=== PATIENT | female | born 1960 | race African-American/Black ===

== ENCOUNTER → 2017-12-14 | Outpatient (CLI) | payer BC ==
--- NOTE | 2017-12-14 14:35 | RADIOLOGY REPORT (SQ) ---
EXAM DESCRIPTION: ANKLE RIGHT AP/LATERAL COMPLETED DATE/TIME: 12/14/2017 2:27 pm REASON FOR STUDY: PAIN IN RIGHT ANKLE AND JOINTS OF RIGHT FOOT M25.571 PAIN IN RIGHT ANKLE AND JOIN TS OF RIGHT FOOT COMPARISON: None. NUMBER OF VIEWS: Two views. TECHNIQUE: AP and lateral radiographic images acquired of the right ankle. LIMITATIONS: None. FINDINGS: MINERALIZATION: Normal. BONES: No acute fracture or dislocation. No worrisome bone lesions. JOINTS: No effusions. SOFT TISSUES: No soft tissue swelling. No foreign body. OTHER: No other significant finding. IMPRESSION: NEGATIVE STUDY OF THE RIGHT ANKLE. NO RADIOGRAPHIC EVIDENCE OF ACUTE INJURY. TECHNICAL DOCUMENTATION: JOB ID: [id number] [employer]- All Rights Reserved Reading location - IP/workstation name: [email or web address]
== END ==
LOC: OD 13:49
PROVIDERS: ATTEND Internal Medicine
DX: M25.571 Pain in right ankle and joints of right foot (principal)

== ENCOUNTER → 2018-02-17 | Outpatient (CLI) | payer BC ==
--- NOTE | 2018-02-18 08:21 | RADIOLOGY REPORT (SQ) ---
EXAM DESCRIPTION: MRI RT LOWER JOINT WITHOUT COMPLETED DATE/TIME: 02/17/2018 5:40 pm REASON FOR STUDY: M79.671 PAIN IN RIGHT FOOT M79.671 PAIN IN RIGHT FOOT COMPARISON: None. TECHNIQUE: Right ankle images acquired and stored on PACS. Multiplanar images include fat sensitive sequences as T1, fluid sensitive sequences as FST2/STIR, cartilage sensitive sequences as FSPD, and g radient echo sequences. LIMITATIONS: None. FINDINGS: BONE MARROW: Subchondral edema anterior calcaneal process. EFFUSIONS: Small subtalar joint effusion. OSSEOUS ARTICULATIONS: Joint space narrowing lateral margin sustentaculum vernoa and talar articular kearns rface series 8, image 18. No osseous coalition. TALAR DOME AND TIBIAL PLAFOND: Intact. No osteochondral defect. ACHILLES TENDON: Intact without partial or full-thickness tear. No adjacent bursal fluid or edema. TIBIALIS ANTERIOR TENDON: Intact without edema at the 1st MT attachment. TIBIALIS POSTERIOR TENDON: Thickening and increased signal. Tendon sheath fluid. FLEXOR HALLUCIS LONGUS AND FLEXOR DIGITORUM TENDONS: Intact. PERONEUS LONGUS AND BREVIS TENDON: Normal morphology and no tendon sheath fluid. No subluxation. ATFL, CFL, PTFL: Intact. No thickening or signal alteration. No randall-ligamentous fluid. DELTOID LIGAMENT: Visualized components intact. TARSAL TUNNEL: No masses. No muscle atrophy. SINUS TARSI: No fluid. No reactive marrow edema or erosions. PLANTAR FASCIA: No signal alteration or tear. ADJACENT SOFT TISSUES: No masses. OTHER: No other significant finding. IMPRESSION: 1. Tibialis posterior tenosynovitis. 2. Subtalar joint arthropathy. Degenerative change sustentaculum verona and talar articular surface. No osseous coalition. TECHNICAL DOCUMENTATION: JOB ID: [id number] [employer]- All Rights Reserved Reading location - IP/workstation name: [email or web address]
== END ==
LOC: RAD 17:44
PROVIDERS: ATTEND Internal Medicine
DX: M79.671 Pain in right foot (principal); M65.871 Other synovitis and tenosynovitis, right ankle and foot

== ENCOUNTER → 2018-05-12 | Outpatient (CLI) | payer BC ==
--- NOTE | 2018-05-12 16:09 | RADIOLOGY REPORT (SQ) ---
EXAM DESCRIPTION: KNEE LEFT 2 VIEWS COMPLETED DATE/TIME: 05/12/2018 3:54 pm REASON FOR STUDY: PAIN IN LEFT KNEE M25.562 PAIN IN LEFT KNEE M79.605 PAIN IN LEFT LEG Pain in the knee, no known injury COMPARISON: None. NUMBER OF VIEWS: Two views. TECHNIQUE: AP lateral radiographic images acquired of the left knee. LIMITATIONS: None. FINDINGS: MINERALIZATION: Normal. BONES: No acute fracture or dislocation. No worrisome bone lesions. JOINT: Small suprapatellar knee joint effusion. High-grade patellofemoral and medial compartment navya nt space narrowing with bony sclerosis and osteophyte formation SOFT TISSUES: No soft tissue swelling. No radio-opaque foreign body. OTHER: No other significant finding. IMPRESSION: Osteoarthritis in the patellofemoral and medial compartments of the left knee. Small kearns prapatellar knee joint effusion TECHNICAL DOCUMENTATION: JOB ID: [id number] [employer]- All Rights Reserved Reading location - IP/workstation name: [email or web address]
--- NOTE | 2018-05-12 16:10 | RADIOLOGY REPORT (SQ) ---
EXAM DESCRIPTION: TIBIA FIBULA LEFT COMPLETED DATE/TIME: 05/12/2018 3:54 pm REASON FOR STUDY: PAIN IN LEFT LEG M25.562 PAIN IN LEFT KNEE M79.605 PAIN IN LEFT LEG COMPARISON: Left knee two views same date NUMBER OF VIEWS: Two views. TECHNIQUE: Two radiographic images acquired of the left tibia and fibula to include the knee and ank le in at least one projection. LIMITATIONS: None. FINDINGS: MINERALIZATION: Normal. BONES: No acute fracture or dislocation. No worrisome bone lesions. SOFT TISSUES: No obvious swelling or foreign body. OTHER: Joint space narrowing and osteophyte formation in the patellofemoral and medial compartments o f the left knee. Small suprapatellar knee joint effusion. IMPRESSION: No acute fracture. Osteoarthritis in the left knee TECHNICAL DOCUMENTATION: JOB ID: [id number] [employer]- All Rights Reserved Reading location - IP/workstation name: [email or web address]
== END ==
LOC: OD 15:34
PROVIDERS: ATTEND Internal Medicine
DX: M25.562 Pain in left knee (principal); M79.605 Pain in left leg; M17.12 Unilateral primary osteoarthritis, left knee

== ENCOUNTER 2018-10-05 05:26 | Day surgery (SDC) | payer BC ==
[2018-10-04 11:40] LABS: HEMATOCRIT 39.7 % (36.0-47.0); HEMOGLOBIN 12.9 g/dL (12.0-15.5); MEAN CORPUSCULAR HEMOGLOBIN 27.6 pg (27.0-33.4); MEAN CORPUSCULAR HGB CONC 32.5 g/dL (32.0-36.0); MEAN CORPUSCULAR VOLUME 85 fl (80-97); PLATELET COUNT 265 10^3/uL (150-450); RED BLOOD COUNT 4.67 10^6/uL (3.72-5.28); WHITE BLOOD COUNT 5.9 10^3/uL (4.0-10.5)
[2018-10-04 11:46] LABS: APPEARANCE,URINE SLIGHTLY-CLOUDY; BILIRUBIN,URINE NEGATIVE (NEGATIVE); COLOR,URINE YELLOW; GLUCOSE, URINE NEGATIVE (NEGATIVE); KETONES,URINE NEGATIVE (NEGATIVE); LEUKOCYTE ESTERASE,URINE NEGATIVE (NEGATIVE); NITRITE,URINE NEGATIVE (NEGATIVE); PROTEIN,URINE NEGATIVE (NEGATIVE); UROBILINOGEN,URINE NEGATIVE mg/dL (<2.0)
[2018-10-04 12:07] LABS: ALANINE AMINOTRANSFERASE 26 U/L (9-52); ALBUMIN 4.6 g/dL (3.5-5.0); ALKALINE PHOSPHATASE 104 U/L (38-126); ANION GAP 8 (5-19); ASPARTATE AMINO TRANSFERASE 24 U/L (14-36); BILIRUBIN,DIRECT 0.2 mg/dL (0.0-0.4); BILIRUBIN,TOTAL 0.5 mg/dL (0.2-1.3); BLOOD UREA NITROGEN 16 mg/dL (7-20); CARBON DIOXIDE 30 mmol/L (22-30); CHLORIDE 102 mmol/L (98-107); GLUCOSE 106 mg/dL (75-110); POTASSIUM 4.5 mmol/L (3.6-5.0); SODIUM 140.1 mmol/L (137-145)
--- NOTE | 2018-10-04 14:35 | RADIOLOGY REPORT (SQ) ---
EXAM DESCRIPTION: CHEST PA/LATERAL COMPLETED DATE/TIME: 10/04/2018 11:08 am REASON FOR STUDY: PRE-OP COMPARISON: None. EXAM PARAMETERS: NUMBER OF VIEWS: two views TECHNIQUE: Digital Frontal and Lateral radiographic views of the chest acquired. RADIATION DOSE: NA LIMITATIONS: none FINDINGS: LUNGS AND PLEURA: No opacities, masses or pneumothorax. No pleural effusion. MEDIASTINUM AND HILAR STRUCTURES: No masses or contour abnormalities. HEART AND VASCULAR STRUCTURES: Mild cardiomegaly BONES: No acute findings. HARDWARE: None in the chest. OTHER: No other significant finding. IMPRESSION: Mild cardiomegaly. No acute findings TECHNICAL DOCUMENTATION: JOB ID: [id number] [employer]- All Rights Reserved Reading location - IP/workstation name: [email or web address]
--- NOTE | 2018-10-04 20:44 | EKG REPORT ---
SEVERITY:- ABNORMAL ECG - SINUS RHYTHM CONSIDER LEFT VENTRICULAR HYPERTROPHY : Confirmed by: Lizet Riojas MD 04-Oct-2018 20:43:45
[~2018-10-05 05:26] MED LIST: CEFAZOLIN 1 GM/D5W RTU 1 GM/50 ML RTUPB IV PRN; LACTATED RINGERS 1000 ML IV PRN; LIDOCAINE 0.5% INJ-PF (5 MG/ML) 50 ML SDV SUBCUT PRN; RINGERS SOLUTION,LACTATED 1,000 ML IV PRN
[2018-10-05] MEDS ORDERED: CEFAZOLIN 1 GM/D5W RTU 1 GM/50 ML RTUPB IV ONE (05:35)
[2018-10-05] MEDS ORDERED: LIDOCAINE 2% INJ (20 MG/ML) 20 ML MDV ONE (06:51)
[2018-10-05] MEDS ORDERED: HYDROMORPHONE HCL INJ/PF 2 MG/ML AMPULE ONE (06:51)
[2018-10-05] MEDS ORDERED: MIDAZOLAM 2 MG/2 ML INJ ONE ×2 (06:52→09:59)
[2018-10-05] MEDS ORDERED: PROPOFOL INJ 200 MG/20 ML VIAL IV ONE ×2 (06:52→09:59)
[2018-10-05] MEDS ORDERED: FENTANYL CITRATE INJ/PF 100 MCG/2 ML AMPUL ONE ×2 (06:52→09:59)
[2018-10-05] MEDS ORDERED: MEPERIDINE HCL/PF INJ 25 MG/1 ML DISP.SYRIN IV PRN (08:15)
[2018-10-05] MEDS ORDERED: MORPHINE SULFATE 10 MG/ML INJ IV PRN ×2 (08:15→10:38)
[2018-10-05] MEDS ORDERED: DIPHENHYDRAMINE HCL 50 MG/ML VIAL IV PRN (08:15)
[2018-10-05] MEDS ORDERED: ONDANSETRON HCL INJ/PF 4 MG/2 ML SDV IV PRN (08:15)
[2018-10-05] MEDS ORDERED: OXYCODONE-ACETAMINOPHEN 5-325 MG TABLET PO PRN ×3 (08:15→10:36)
[2018-10-05] MEDS ORDERED: FENTANYL CITRATE INJ/PF 100 MCG/2 ML AMPUL IV PRN ×3 (08:15)
[2018-10-05] MEDS ORDERED: PROMETHAZINE HCL INJ 25 MG/1 ML VIAL IV PRN (08:15)
[2018-10-05] MEDS ORDERED: DEXAMETHASONE SOD PHOSPHATE INJ 4 MG/1 ML VIAL ONE ×2 (09:59→14:50)
[2018-10-05] MEDS ORDERED: KETOROLAC TROMETHAMINE 60 MG/2 ML SDV ONE ×2 (09:59→14:50)
[2018-10-05] MEDS ORDERED: ONDANSETRON HCL INJ/PF 4 MG/2 ML SDV ONE ×2 (09:59→14:50)
[2018-10-05] MEDS ORDERED: ACETAMINOPHEN 1,000 MG/100 ML RTUPB IV ONE (10:04)
--- NOTE | 2018-10-05 11:20 | OPERATIVE REPORT E ---
Operative Report NAME: MERCED MENA : 1960 AGE: 58Y DATE OF SURGERY: 10/05/2018 ROOM: PREOPERATIVE DIAGNOSIS: POSTMENOPAUSAL BLEEDING, COMPLEX HYPERPLASIA WITH ATYPIA ON ENDOMETRIAL BIOPSY. POSTOPERATIVE DIAGNOSIS: POSTMENOPAUSAL BLEEDING, COMPLEX HYPERPLASIA WITH ATYPIA ON ENDOMETRIAL BIOPSY. OPERATION: Robotic-assisted total laparoscopic hysterectomy with bilateral salpingo-oophorectomy and lysis of adhesions. SURGEON: JOSE C MURPHY M.D. ANESTHESIA: [facility] [place] with [place] FINDINGS: Six week size uterus with a left ovarian cyst that looked clear and simple in appearance. Multiple adhesions of the omentum to the umbilicus, some mild adhesions of the bladder to the lower uterine segment. COMPLICATIONS: None. ESTIMATED BLOOD LOSS: 200 mL. SPECIMENS REMOVED: Uterus and bilateral fallopian tubes and ovaries. PROCEDURE: The patient was taken to the operating room, prepared and draped in normal sterile fashion in dorsal lithotomy position. Under sterile conditions, a Smith catheter was placed to gravity and a sterile speculum was placed into the vagina, and the cervix was grasped on the anterior lip with a single-tooth tenaculum and prepped with Betadine. The uterus was then dilated to accommodate a medium V-care which was accomplished with minimal difficulty. The speculum and tenaculum were then removed and gloves were changed and attention was turned to the upper portion of the case. A 2.5 cm skin incision was made approximately 1.5 cm above the umbilicus with the scalpel and this was carried through to the underlying layer of fascia with the same scalpel. The fascia was excised in the midline and extended laterally with Mayos at this point. The peritoneal cavity was entered at this point without difficulty. A gel port was then placed. The abdomen was inflated with approximately 2 liters of CO2 gas, and the robotic camera was introduced with the above findings noted. Under direct visualization, 2 5 mm ports were placed on either side of the umbilicus, approximately 10 cm from the umbilicus and using blunt dissection we were able to take down the majority of the adhesions of the omentum from the anterior abdominal wall using an atraumatic grasper. The camera was removed and the robot was then docked and the vessel sealer and monopolar scissors were placed. I then unscrubbed and sat at the console where, beginning with the right adnexa, I transected the IP ligament following the contours of the ovary and proceeding through to the round ligament using the vessel sealer, transected the round ligament and then again hugging the uterine wall, began transection of the uterine arteries and skeletonization of the broad ligament away from the uterus. I then switched my attention to the left adnexa and in a similar fashion transected the IP ligament and continued with transection of the round ligament and the broad ligament skeletonizing the uterine arteries and transecting these again with the vessel sealer. I completed transection and dissection of the uterine arteries bilaterally in a normal fashion and until I reached the level of the external cervical os and noted the V-care manipulator through the mucosa readily. I dissected the bladder away using the monopolar scissors and blunt dissection. I then began the colporrhaphy on the anterior aspect of the cervix following the V-care and did this in a circumferential fashion until the specimen was completely freed. The specimen was then removed through the vagina. Instruments were changed to a caron-needle charter and tour bus driver and a Prograf. A V-LOC needle was introduced through the assistance port. The vaginal cuff was then closed with a V-LOC without difficulty. The needle was then ligated with laparoscopic scissors and was removed with a laparoscopic needle charter and tour bus driver through the assistance port. I then inspected the ureters and found them both to be peristalsing normally. There were no signs of hydroureter. The rest of the cavity was copiously suction irrigated and inspected carefully and found to be hemostatic. The robotic portion of the case was then concluded and the robot was undocked. Trocars were removed and the gel port was removed in a normal fashion. The fascia was closed at the gel port incision using 0-Vicryl and the skin was closed at all 3 incisions using 4-0 Vicryl. The patient tolerated the procedure well. Sponge, lap, and needle counts were correct x2 and the patient was taken to recovery in stable condition. DICTATING PHYSICIAN: JOSE C MURPHY M.D. [id number] PHY#: [id number] ID: [id number] JOB#: [id number] ACCT: [id number] cc:JOSE C MURPHY M.D. >
[2018-10-05] MEDS: RINGERS SOLUTION,LACTATED 1,000 ML IV PRN ×2 (12:19→21:55)
[2018-10-05] MEDS ORDERED: ONDANSETRON HCL INJ/PF 4 MG/2 ML SDV IV ONE (12:45)
[2018-10-05] MEDS ORDERED: ROCURONIUM BROMIDE INJ 50 MG/5 ML VIAL IV ONE (14:50)
[2018-10-05] MEDS ORDERED: GLYCOPYRROLATE 1 MG/5 ML VIAL ONE (14:50)
[2018-10-05] MEDS ORDERED: SUCCINYLCHOLINE CHLORIDE INJ 200 MG/10 ML VIAL ONE (14:50)
[2018-10-05] MEDS ORDERED: ACETAMINOPHEN 1,000 MG/100 ML RTUPB IV PRN (18:00)
[2018-10-05] MEDS ORDERED: ACETAMINOPHEN 1,000 MG/100 ML RTUPB IV SCH (18:00)
[2018-10-05] MEDS: KETOROLAC TROMETHAMINE INJ/PF 30 MG/1 ML SDV INJ SCH (18:16)
[2018-10-06] MEDS: KETOROLAC TROMETHAMINE INJ/PF 30 MG/1 ML SDV INJ SCH (02:46)
[2018-10-06 07:04] LABS: HEMATOCRIT 34.8 % (36.0-47.0); HEMOGLOBIN 11.4 g/dL (12.0-15.5); MEAN CORPUSCULAR HEMOGLOBIN 27.5 pg (27.0-33.4); MEAN CORPUSCULAR HGB CONC 32.6 g/dL (32.0-36.0); MEAN CORPUSCULAR VOLUME 84 fl (80-97); PLATELET COUNT 234 10^3/uL (150-450); RED BLOOD COUNT 4.14 10^6/uL (3.72-5.28); RED CELL DISTRIBUTION WIDTH 14.1 % (11.5-14.0); WHITE BLOOD COUNT 7.9 10^3/uL (4.0-10.5)
--- NOTE | 2018-10-06 07:48 | PDOC DISCHARGE SUMMARY ---
General - Admit/Disc Date/PCP Admission Date/Primary Care Provider: VISHNU DURHAM MD Discharge Date: 10/06/18 - Discharge Diagnosis (1) Abnormal uterine bleeding Is this a current diagnosis for this admission?: Yes (2) Post-menopausal bleeding Is this a current diagnosis for this admission?: Yes (3) Complex endometrial hyperplasia with atypia Is this a current diagnosis for this admission?: Yes - Additional Information Home Medications: Multivitamin [Multivitamins] 1 each PO DAILY 10/04/18 [place]-3 Fatty Acids/Fish Oil [Fish Oil 1,000 Mg Capsule] 1 each PO DAILY 9 Turmeric Root Extract [Turmeric] 1,053 mg PO DAILY 10/04/18 History of Present Illness History of Present Illness: MERCED MENA is a 58 year old female Hospital Course Hospital Course: underwent RATLH w/ BSO wihtout difficulty and an unremarkable postoperative course. voiding well, tolerating a regular diet. Physical Exam - Physical Exam Vital Signs: Temp Pulse Resp BP Pulse Ox 98.1 F 71 18 144/67 H 100 10/06/18 04:33 10/06/18 04:33 10/06/18 04:33 10/06/18 04:33 10/06/18 04:33 Intake & Output 10/05/18 10/06/18 10/07/18 06:59 06:59 06:59 Intake Total 0 2835 Output Total 250 Balance 0 2585 Weight 84.82 kg 84 kg General appearance: PRESENT: no acute distress, cooperative GI/Abdominal exam: PRESENT: tenderness - appropriate for post operative state. incisions clean/dry/intact Result Laboratory Results: 10/06/18 06:03 10/04/18 10:47 10/06/18 06:03 WBC 7.9 RBC 4.14 Hgb 11.4 L Hct 34.8 L MCV 84 MCH 27.5 MCHC 32.6 RDW 14.1 H Plt Count 234 Impressions: Chest X-Ray 10/04/18 11:01 IMPRESSION: Mild cardiomegaly. No acute findings Plan Discharge Plan: discharge home with routine postoperative instructions. pt has follow up scheduled in 2 wks with me at [facility] Time Spent: Less than 30 Minutes Acute Heart Failure - Is this a Heart Failure Patient?: No
[2018-10-06 09:42] VITALS: BP 133/71
[2018-10-06] MEDS ORDERED: IBUPROFEN 800 MG TABLET PO PRN (16:00)
== END 2018-10-06 09:51 | disposition hospice, home (50) ==
LOC: OROUT 05:26 → 2N 05:30 → OROUT 10-06 09:51
PROVIDERS: ATTEND Obstetrics & Gynecology
DX: N93.9 Abnormal uterine and vaginal bleeding, unspecified (principal); N87.0 Mild cervical dysplasia; N84.0 Polyp of corpus uteri; D25.9 Leiomyoma of uterus, unspecified; N83.312 Acquired atrophy of left ovary; N83.311 Acquired atrophy of right ovary; K66.0 Peritoneal adhesions (postprocedural) (postinfection); N83.202 Unspecified ovarian cyst, left side
CPT/HCPCS: 58571; S2900; 36415; 71046; 80053; 81001; 83036; 840; 85027; 86850; 86900; 86901; 88307; 93005; 93010; A4649; J0131; J0330; J0690; J1100; J1170; J1885; J2250; J2405; J2704; J3010; J3490; J7120